=== PATIENT | female | born 1950 | race Caucasian/White ===

== ENCOUNTER → 2023-04-09 | Outpatient (CLI) | payer MEDICARE, SELFPAY ==
--- NOTE | 2023-04-10 13:08 | PFT ---
INTRODUCTION: The patient is a 73-year-old female who presents for pulmonary function studies secondary to a diagnosis of hypoxemia. Respiratory therapy reported good patient effort. Bronchodilators were used during testing. INTERPRETATION: Forced expiration spirometry demonstrates the presence of a moderate large airways obstructive ventilatory defect. There was a significant response to aerosolized bronchodilators. Body plethysmography was performed and revealed an elevated RV to 123% of predicted, indicative of underlying air trapping. Diffusing capacity by single breath CO was reduced to 54% of predicted. IMPRESSION: Partially reversible moderate large airways obstructive ventilatory defect with associated air trapping and symmetric reduction in diffusing capacity.
== END | disposition home or self-care (01) ==
PROVIDERS: PCP Internal Medicine; Referring Provider Internal Medicine Critical Care Medicine; Visit Provider Internal Medicine Critical Care Medicine
DX: R09.02 Hypoxemia (principal)
CPT/HCPCS: 94060; 94726; 94729

== ENCOUNTER → 2023-04-11 | Outpatient (CLI) | payer MEDICARE, SELFPAY ==
--- NOTE | 2023-04-11 13:08 | CT_ITS ---
STUDY: CT CHEST WITHOUT CONTRAST REASON FOR EXAM: Female, 73 years old. Abnormal CXR with hypoxia RADIATION DOSAGE (If Supplied By Facility): CTDIvol = ( 17.30 ) mGy, DLP = ( 635.32 ) mGycm TECHNIQUE: Transaxial imaging was performed without the administration of intravenous contrast material. Multiplanar coronal and sagittal images were reformatted. Individualized dose optimization techniques were used for this CT. COMPARISON: No relevant priors. FINDINGS: CHEST Heterogeneous appearance of the right lobe of the thyroid with focal calcifications. Multiple bilateral geographic areas of the mild groundglass appearance. This may represent early scarring and/or inhalational issue. Follow-up recommended. There is no demonstrated pleural abnormality. There are calcifications of the coronary arteries. There are multiple small lymph nodes within the mediastinum, which are normal in size and morphology most compatible with reactive lymph hyperplasia. Normal hilar regions. Normal unenhanced pulmonary arteries. There is atherosclerotic calcification of the aortic arch. There are multi-level degenerative changes of the thoracic spine. Patient is status post cholecystectomy. CT/Chest without Contrast IMPRESSION: Multiple bilateral geographic areas of mild groundglass appearance. Follow-up recommended. Electronically Signed: Connor Armenta MD at 14:17 [facility] ,
== END | disposition home or self-care (01) ==
LOC: CT 13:07
PROVIDERS: PCP Internal Medicine; Referring Provider Internal Medicine Critical Care Medicine; Visit Provider Internal Medicine Critical Care Medicine
DX: R09.02 Hypoxemia (principal)
CPT/HCPCS: 71250

== ENCOUNTER 2023-08-23 13:43 | Outpatient (CLI) | payer MEDICARE, SELFPAY ==
--- NOTE | 2023-08-23 13:49 | ECHOCS_ITS ---
Reason For Study: Dyspnea/SOB Procedure This was a 2D Doppler, Color Flow transthoracic echocardiogram. The study was technically difficult. Contrast injection was performed. Exam performed in department. Left Ventricle Normal LV size. The estimated ejection fraction is 65 %. No evidence for diastolic dysfunction. No regional wall motion abnormalities noted. Right Ventricle Normal RV size. Normal systolic function. Atria The left and right atria are normal. No doppler evidence for ASD. Mitral Valve There is no mitral valve stenosis. No mitral valve insufficiency. Tricuspid Valve There is no tricuspid stenosis. Unable to estimate RV systolic pressure due to insufficient tricuspid regurgitant envelope. Trivial tricuspid valve insufficiency. Aortic Valve Trisinus/trileaflet aortic valve. Aortic sclerosis, no stenosis. There is no aortic stenosis. No aortic valve insufficiency. Pulmonic Valve There is no pulmonic valvular stenosis. Trivial pulmonic valve insufficiency. Great Vessels Normal aortic root. Pericardium/Pleural No pericardial effusion. Medication 22 gauge I.V. with prn adaptor inserted into right arm. Diluted definity 3ml given slow IV push to enhance endocardial definition. MMode/2D Measurements & Calculations LVIDd: 4.0 cm IVSd: 1.1 cm Ao root diam: 3.7 cm LVIDs: 2.8 cm LVPWd: 0.91 cm LA dimension: 3.5 cm RVDd: 3.4 cm FS: 29.3 % LAV(MOD-bp): 38.9 ml LVAd ap4: 25.3 cm2 SV(MOD-sp4): 48.6 ml LAV(MOD-bp) Indexed: 19.1 ml/m2 LVLd ap4: 7.4 cm LAV(MOD-sp2): 47.1 ml EDV(MOD-sp4): 71.1 ml LAV(MOD-sp4): 31.2 ml EDV(sp4-el): 73.5 ml LVAs ap4: 11.8 cm2 LVLs ap4: 5.5 cm ESV(MOD-sp4): 22.5 ml ESV(sp4-el): 21.7 ml EF(MOD-sp4): 68.4 % EF(sp4-el): 70.5 % SV(sp4-el): 51.8 ml LA A4 area: 13.7 cm2 RA A4 area: 13.5 cm2 TAPSE: 1.6 cm Time Measurements MV dec time: 0.24 sec Doppler Measurements & Calculations MV E max petros: 71.0 cm/sec Lat Peak E' Petros: 11.7 cm/sec Med Peak E' Petros: 7.4 cm/sec MV A max petros: 80.1 cm/sec E/E' lat: 6.1 E/E' med: 9.6 MV E/A: 0.89 MV V2 max: 93.9 cm/sec MV P1/2t max petros: 93.9 cm/sec Ao V2 max: 119.7 cm/sec MV max P.5 mmHg MV P1/2t: 88.5 msec Ao max P.7 mmHg MV V2 mean: 52.3 cm/sec Ao V2 mean: 88.3 cm/sec MV mean P.3 mmHg MV dec slope: 310.5 cm/sec2 Ao mean P.4 mmHg MV V2 VTI: 29.8 cm MVA(P1/2t): 2.5 cm2 Ao V2 VTI: 27.0 cm AV (velocity ratio): 0.66 LV V1 max: 86.2 cm/sec PA V2 max: 78.0 cm/sec TR max petros: 290.9 cm/sec LV V1 max P.0 mmHg PA V2 mean: 57.5 cm/sec TR max P.9 mmHg LV V1 mean P.8 mmHg LV V1 mean: 64.8 cm/sec LV V1 VTI: 17.8 cm ECHO/Echo Complete W/ Contrast Interpretation Summary The estimated ejection fraction is 65 %. No evidence for diastolic dysfunction. Ordering Physician: Dwayne Cam Referring Physician: Dwayne Cam Performed By: Bill Chen RCS
== END 2023-08-23 23:59 | disposition home or self-care (01) ==
PROVIDERS: PCP Internal Medicine; Referring Provider Internal Medicine Critical Care Medicine; Visit Provider Internal Medicine Critical Care Medicine
DX: R06.02 Shortness of breath (principal); R09.02 Hypoxemia
CPT/HCPCS: 93306; Q9957; A4216; C8929